=== PATIENT | female | born 1995 | race African-American/Black ===

== ENCOUNTER 2021-06-26 22:49 | Emergency (ER) | payer OTHER ==
[~2021-06-26] VITALS: Ht 172.7 cm; Wt 127.0 kg
[2021-06-26 23:49] LABS: ABSOLUTE NEUTROPHILS 3.5 thou/uL (1.4-8.2); BASOPHILS 0.9 % (0.0-2.0); EOSINOPHILS 1.8 % (0.0-3.0); HEMATOCRIT 39.2 % (37.0-47.0); HEMOGLOBIN 13.2 gm/dL (12.0-15.0); LYMPHOCYTES 27.1 % (24.0-44.0); MCH 30.2 pg (26.0-34.0); MCHC 33.7 g/dL (28.0-37.0); MCV 89.4 fL (80.0-100.0); MONOCYTES 8.5 % (1.0-8.0); PLATELET COUNT 257 thou/uL (150-400); POLYS 61.7 % (36.0-66.0); RBC 4.38 mil/uL (4.20-5.00); RDW 14.4 % (10.5-14.5); WBC 5.7 thou/uL (4.0-11.0)
[2021-06-26 23:53] LABS: CALCIUM 8.7 mg/dL (8.5-10.1); CREATININE 1.1 mg/dL (0.6-1.0); POTASSIUM 3.9 mmol/L (3.5-5.1)
[2021-06-27] MEDS ORDERED: NORVASC10 MG PO (01:03)
[2021-06-27 01:10] VITALS: BP 136/74
--- NOTE | 2021-06-27 09:59 | EKG ---
[address] [address] ELECTROCARDIOGRAM REPORT Name: ALEOJ LECHUGA Room #: 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: : 1995 Requested By: Cheng Parisi Order Number: [id number] MD: Jeronimo Dupont Measurements Intervals [place] Rate: 99 P: 50 MT: 133 QRS: 32 QRSD: 86 T: -16 QT: 327 QTc: 420 Interpretive Statements Sinus rhythm Borderline T abnormalities, diffuse leads Baseline wander in lead(s) I,II,aVR,V6 No previous ECG available for comparison Electronically Signed On 06-27-2021 9:59:18 [employer] by Jeronimo Dupont [email or web address] <ELECTRONICALLY SIGNED> By: Jeronimo Dupont MD, [facility] 06/27/21 [id number] Jeronimo Dupont MD, FAC /EPI
== END 2021-06-27 01:11 | disposition home or self-care (01) ==
LOC: ER 22:49
PROVIDERS: Student in an Organized Health Care Education/Training Program
DX: R07.89 Other chest pain (principal); I10 Essential (primary) hypertension; F17.210 Nicotine dependence, cigarettes, uncomplicated